=== PATIENT | male | born 1945 | race Caucasian/White ===

== ENCOUNTER 2025-01-04 10:32 | Outpatient (CLI) | payer MEDICARE ==
[~2025-01-04 10:32] MED LIST: Iopamidol 300 61% 100 ML VIAL FS ONE
== END 2025-01-04 10:33 | disposition home or self-care (01) ==
LOC: CSHCT 10:32
PROVIDERS: ATTEND Radiology Radiation Oncology
DX: C22.8 Malignant neoplasm of liver, primary, unspecified as to type (principal); Z92.3 Personal history of irradiation; J98.6 Disorders of diaphragm; R91.8 Other nonspecific abnormal finding of lung field; Z98.890 Other specified postprocedural states; I71.40 Abdominal aortic aneurysm, without rupture, unspecified; I70.90 Unspecified atherosclerosis
CPT/HCPCS: 71260; 74177; 82565